=== PATIENT | female | born 1990 | race Caucasian/White ===

== ENCOUNTER 2016-08-04 16:09 | Emergency (ER) | payer MEDICAID, OTHER ==
[~2016-08-04] VITALS: Ht 162.6 cm; Wt 100.0 kg
[2016-08-04] MEDS ORDERED: LEVOFLOXACIN 500MG TABLET PO ONE (18:00)
[2016-08-04] MEDS ORDERED: PHENAZOPYRIDINE HCL 200MG TABLET PO ONE (18:00)
[2016-08-04 18:12] LABS: CLARITY URINE CLEAR (CLEAR); COLOR URINE YELLOW (YELLOW); GLUCOSE URINE NEGATIVE (NEGATIVE); KETONES URINE NEGATIVE (NEGATIVE); LEUKOCYTE ESTERASE URINE 1+ (NEGATIVE); NITRITE URINE NEGATIVE (NEGATIVE); OCCULT BLOOD URINE 1+ (NEGATIVE); PROTEIN URINE NEGATIVE (NEGATIVE); SPECIFIC GRAVITY URINE 1.022 (1.005-1.030); UROBILINOGEN URINE 0.2 E.U./dL (0.2-1.0)
[2016-08-04 18:25] VITALS: BP 123/71
[2016-08-04 18:53] LABS: BACTERIA URINE TRACE; SQUAMOUS EPITHELIAL CELL URINE FEW /lpf (RARE/1+); WBC URINE 25-50 /hpf (0-2)
== END 2016-08-04 18:36 | disposition home or self-care (01) ==
LOC: ER 17:27
DX: N39.0 Urinary tract infection, site not specified (principal); I10 Essential (primary) hypertension; E66.9 Obesity, unspecified; Z68.37 Body mass index [BMI] 37.0-37.9, adult
CPT/HCPCS: 81001; 81025; 87077; 87086; 87186; 99284